=== PATIENT | male | born 1985 | race Hispanic/Latino ===

== ENCOUNTER 2022-03-18 07:19 | Emergency (ER) | payer MEDICAID, OTHER ==
[~2022-03-18] VITALS: Ht 177.8 cm; Wt 99.8 kg
[2022-03-18 07:25] VITALS: BP 133/80
[2022-03-18] MEDS ORDERED: KETOROLAC 30MG VIAL (30MG/ML) IM SCH (07:30)
[2022-03-18] MEDS ORDERED: CEPH500B PO (07:35)
[2022-03-18] MEDS ORDERED: KETOROLAC 30MG VIAL (30MG/ML) ONE (07:35)
[2022-03-18] MEDS ORDERED: TETANUS/DIPHTHERIA TOXOID [ADULT] 0.5 ML VIAL IM SCH (08:00)
== END 2022-03-18 07:47 | disposition home or self-care (01) ==
LOC: EDH 07:19
DX: S80.862A Insect bite (nonvenomous), left lower leg, initial encounter (principal); L03.116 Cellulitis of left lower limb; W57.XXXA Bitten or stung by nonvenomous insect and other nonvenomous arthropods, initial encounter; Y93.89 Activity, other specified; Y92.89 Other specified places as the place of occurrence of the external cause; Y99.8 Other external cause status
CPT/HCPCS: 90471; 90714; 96372; 99284; J1885